=== PATIENT | male | born 1960 | race Caucasian/White ===

== ENCOUNTER → 2017-11-23 | Outpatient (CLI) | payer OTHER ==
[~2017-11-23] MED LIST: LISI-725 PO
[2017-11-23 12:28] LABS: BASO % 0.1 %; BASO ABS # 0.02 K/uL (0-0.2); EOS % 0.8 %; EOS ABS # 0.11 K/uL (0-0.5); HEMOGLOBIN 15.4 g/dL (14.0-18.0); IG# 0.04 K/uL (0.00-0.02); LYMPH % 15.9 %; LYMPH ABS # 2.21 K/uL (1.2-3.4); MEAN CELL VOLUME 92.8 fL (80-100); MEAN CORPUSCULAR HEMOGLOBIN 31.8 pg (25-34); MEAN CORPUSCULAR HGB CONC 34.2 g/dl (32-36); MEAN PLATELET VOLUME 9.4 fL (7.4-10.4); MONO % 7.6 %; MONO ABS # 1.05 K/uL (0.11-0.59); NEUT % 75.3 %; NEUT ABS # 10.44 K/uL (1.4-6.5); PLATELET COUNT 285 K/uL (130-400); RED CELL DISTRIBUTION WIDTH CV 12.4 % (11.5-14.5); RED CELL DISTRIBUTION WIDTH SD 42.5 fL (36.4-46.3); WHITE BLOOD COUNT 13.87 K/uL (4.8-10.8)
[2017-11-23 12:53] LABS: ALKALINE PHOSPHATASE 75 U/L (45-117); ALT/SGPT 54 U/L (12-78); AST/SGOT 27 U/L (15-37); BLOOD UREA NITROGEN 34 mg/dl (7-18); CALCIUM 9.4 mg/dl (8.5-10.1); CARBON DIOXIDE 25 mmol/L (21-32); CREATININE 1.36 mg/dl (0.60-1.40); GLUCOSE 112 mg/dl (70-99); POTASSIUM 4.4 mmol/L (3.5-5.1); SODIUM 135 mmol/L (136-145)
[2017-11-23 12:58] LABS: CHOLESTEROL 286 mg/dl (0-200); LDL CHOLESTEROL CALCULATED 202 mg/dl; TOTAL PROTEIN 8.1 gm/dl (6.4-8.2)
== END | disposition home or self-care (01) ==
LOC: C.LABBFT 07:38
PROVIDERS: ATTEND Physician Assistant Medical
DX: R73.01 Impaired fasting glucose (principal); N40.1 Benign prostatic hyperplasia with lower urinary tract symptoms; I10 Essential (primary) hypertension

== ENCOUNTER → 2017-11-30 | Outpatient (CLI) | payer OTHER ==
[2017-11-30 12:39] LABS: BASO % 0.3 %; BASO ABS # 0.02 K/uL (0-0.2); EOS ABS # 0.14 K/uL (0-0.5); HEMATOCRIT 42.2 % (42-52); HEMOGLOBIN 14.5 g/dL (14.0-18.0); IG# 0.01 K/uL (0.00-0.02); LYMPH % 33.3 %; LYMPH ABS # 2.32 K/uL (1.2-3.4); MEAN CELL VOLUME 92.3 fL (80-100); MEAN CORPUSCULAR HEMOGLOBIN 31.7 pg (25-34); MEAN CORPUSCULAR HGB CONC 34.4 g/dl (32-36); MONO % 7.5 %; MONO ABS # 0.52 K/uL (0.11-0.59); NEUT % 56.8 %; NEUT ABS # 3.95 K/uL (1.4-6.5); PLATELET COUNT 303 K/uL (130-400); RED CELL DISTRIBUTION WIDTH CV 12.1 % (11.5-14.5); RED CELL DISTRIBUTION WIDTH SD 40.9 fL (36.4-46.3); WHITE BLOOD COUNT 6.96 K/uL (4.8-10.8)
[2017-11-30 13:09] LABS: BLOOD UREA NITROGEN 27 mg/dl (7-18); CALCIUM 9.3 mg/dl (8.5-10.1); CARBON DIOXIDE 26 mmol/L (21-32); GLUCOSE 103 mg/dl (70-99); POTASSIUM 4.1 mmol/L (3.5-5.1); SODIUM 137 mmol/L (136-145)
== END | disposition home or self-care (01) ==
LOC: C.LABBFT 07:08
PROVIDERS: ATTEND Physician Assistant Medical
DX: Z00.00 Encounter for general adult medical examination without abnormal findings (principal); I10 Essential (primary) hypertension; R35.0 Frequency of micturition; R53.83 Other fatigue

== ENCOUNTER 2025-02-25 06:19 | Observation (INO) ==
--- NOTE | 2025-01-16 10:08 | PAT Medication Instructions ---
Medication Instructions Date of Service January 16, 2025 Home Medications Medication Instructions Recorded dutasteride 0.5 mg capsule 0.5 mg PO PM #90 caps 03/10/24 (Avodart) tadalafil 5 mg tablet (Cialis) 5 mg PO DAILY bph #30 tabs 03/17/24 amlodipine 10 mg tablet 10 mg PO DAILY #90 tabs 04/08/24 chlorthalidone 25 mg tablet 25 mg PO DAILY #90 tabs 04/16/24 metformin 500 mg tablet,extended 1,500 mg (3 x 500 mg) PO DAILY 90 04/16/24 release 24 hr days #270 tabs miconazole nitrate 2 % topical 1 applic topical BID #28 grams 04/16/24 cream hydroxyzine HCl 25 mg tablet See Rx Instructions PO .COMPLEX 11/17/24 PRN itching #240 tabs evolocumab 140 mg/mL subcutaneous 140 mg subcut .every 2 weeks #2 mL 01/01/25 pen injector (Repatha SureClick) olmesartan 40 mg tablet 40 mg PO DAILY #90 tabs 01/02/25 Medication List: dutasteride 0.5 mg capsule (Avodart) 0.5 mg PO PM tadalafil 5 mg tablet (Cialis) 5 mg PO DAILY bph amlodipine 10 mg tablet 10 mg PO DAILY chlorthalidone 25 mg tablet 25 mg PO DAILY metformin 500 mg tablet,extended release 24 hr 1,500 mg (3 x 500 mg) PO DAILY miconazole nitrate 2 % topical cream 1 applic topical BID hydroxyzine HCl 25 mg tablet See Rx Instructions PO .COMPLEX PRN itching evolocumab 140 mg/mL subcutaneous pen injector (Repatha SureClick) 140 mg subcut .every 2 weeks olmesartan 40 mg tablet 40 mg PO DAILY ezetimibe 10 mg tablet 10 mg PO HS MEDICATION INSTRUCTIONS: Continue as directed miconazole nitrate 2 % topical cream 1 applic topical BID (do not apply after bathing prior to surgery) DO NOT take the morning of surgery olmesartan 40 mg tablet 40 mg PO DAILY chlorthalidone 25 mg tablet 25 mg PO DAILY tadalafil 5 mg tablet (Cialis) 5 mg PO DAILY bph metformin 500 mg tablet,extended release 24 hr 1,500 mg (3 x 500 mg) PO DAILY Take morning of surgery With a small sip of water, OTHERWISE NOTHING TO EAT OR DRINK AFTER MIDNIGHT: amlodipine 10 mg tablet 10 mg PO DAILY Take evening before surgery ezetimibe 10 mg tablet 10 mg PO HS dutasteride 0.5 mg capsule (Avodart) 0.5 mg PO PM hydroxyzine HCl 25 mg tablet See Rx Instructions PO .COMPLEX PRN itching Other Notes ASK your prescriber for instructions: evolocumab 140 mg/mL subcutaneous pen injector (Repatha SureClick) 140 mg subcut .every 2 weeks If you have any questions please call us at [phone] or [phone] or [phone] or [phone]
--- NOTE | 2025-01-26 08:10 | Anesthesiology Consultation ---
Date of Service January 26, 2025 Assessment & Plan (1) Encounter for pre-operative examination: Plan - check BSG am DOS. - anesthesiologist request: Dr. Johnson. Request forwarded, patient aware/comfortable with any anesthesiologist if Dr. Johnson is not available that day. - cardiology office visit 01/01/25 [place]: "...Dyslipidemia/Statin Myopathy and Dyspnea on Exertion...exertional dyspnea over the past 3 years. It has not been progressive nor is it consistently reproducible. Patient admits he has had a lot of trouble with his lumbar spinal stenosis and right knee osteoarthritis which is really quite painful. He still rides his Peloton 4-5 times per week which he tolerates well without exertional dyspnea, but he is more likely to have significant knee pain and experience exertional dyspnea when he walks. Patient has not had classic angina pectoris, overt signs or symptoms of heart failure, nor has he had any symptoms suggestive of dysrhythmia. Patient is compliant with his medications...he is willing to take Repatha if he can stop Zetia. I strongly suspect that his exertional dyspnea when he walks on his painful knee but he does not have exertional dyspnea when he rides his Peloton -- he may be holding his breath when he is walking as it is painful on his right knee. However with his cardiac risk factors, would like to do further evaluation of his exertional dyspnea especially in light of his upcoming right TKA..." - Outpatient joint assessment: Patient is currently scheduled for inpatient pathway. If re-evaluated and patient/surgeon requests outpatient pathway, patient is acceptable candidate for outpatient joint program from anesthesia standpoint pending surgeon's office assessment of pt motivation/support/completion of same day joint program preop requirements. Chart Review Chart Review: Acceptable Risk for Surgery and Patient seen in Pre Admission Testing Teaching & Discussion Pre-Anesthesia Teaching/Discussion Notes: Instructed NPO after midnight before surgery, except medications with 15 cc of water. Medication instructions provided according to the PAT guidelines. History Surgery Operation Date: 02/25/25 08:50 Proposed Procedures p Right Total Knee Arthroplasty - Edwin Wade MD Height/Weight Height: 5 ft 11 in Weight: 105.7 kg Allergies Allergy/AdvReac Type Severity Reaction Status Date / Time atorvastatin AdvReac Mild erectile Verified 01/15/25 11:24 dysfxn rosuvastatin AdvReac Mild Muscle Pain Verified 01/15/25 11:24 trazodone AdvReac Mild Headache Verified 01/15/25 11:24 Medications Home Medications Medication Instructions Recorded Confirmed Last Taken dutasteride 0.5 mg capsule 0.5 mg PO PM #90 caps 03/10/24 01/15/25 Unknown (Avodart) miconazole nitrate 2 % topical 1 applic topical BID #28 grams 04/16/24 01/15/25 Unknown cream hydroxyzine HCl 25 mg tablet See Rx Instructions PO .COMPLEX 11/17/24 01/15/25 Unknown PRN itching #240 tabs ezetimibe 10 mg tablet 10 mg PO HS 01/15/25 01/15/25 Unknown amlodipine 10 mg tablet 10 mg PO QPM 01/26/25 01/26/25 Unknown chlorthalidone 25 mg tablet 25 mg PO QPM 01/26/25 01/26/25 Unknown evolocumab 140 mg/mL subcutaneous 140 mg subcut .every 2 weeks #6 mL 01/26/25 Unknown pen injector (Kurtis Davis) metformin 500 mg tablet,extended 1,500 mg PO QPM 01/26/25 01/26/25 Unknown release 24 hr olmesartan 40 mg tablet 40 mg PO QPM 01/26/25 01/26/25 Unknown tadalafil 5 mg tablet (Cialis) 5 mg PO QPM bph 01/26/25 01/26/25 Unknown Additional Notes: He states all medications are taken in the evening. He was advised he can therefore continue olmesartan, chlorthalidone, tadalafil and metformin in the evening. He verbalized understanding and denied questions/concerns/additional medication changes. Past Medical History Medical History BPH (benign prostatic hyperplasia) Depression History of anemia History of dyspnea denies current HLD (hyperlipidemia) HTN (hypertension) controlled, stable per pt Impaired fasting glucose on Metformin daily Osteoarthritis Spinal stenosis Patient denies h/o stroke, seizures, heart attack, heart failure, blood clots/DVTs or blood transfusions. Exercise / Class Metabolic Activity II 4-5 Yardwork/Stairs/Walk up hill (shortness of breath walking up one flight of stairs or a hill ongoing for several years-evaluated by [place] cardio/stress test negative-denies change or worsening; denies chest discomfort) Past Family History Family History Father Heart disease Mother Lung disease Other No family history of adverse response to anesthesia Denies family history of Ovarian cancer Prostate cancer Myocardial infarction Breast cancer Colorectal cancer Colonic polyp Past Surgical History Surgical History History of colonoscopy History of wisdom tooth extraction Hx of vasectomy S/P appendectomy S/P foot surgery right foot joint replacement S/P hernia repair s/p umbilical and ventral hernia repair 01/04/15 S/P shoulder surgery 2005- left-Dr. Hargrove Past Anesthesia History No Hx of Anesthesia Complications and No Family Hx of Anesthesia Complications History of PONV No Hx of PONV and No Hx of Motion Sickness Social History Smoking Status: Never smoker Do You Dip or Chew Tobacco: No Hx Alcohol Use: No Alcohol type: beer alcohol intake frequency: a few times a week Hx Substance Use: No substance use type: does not use Review of Systems Snoring, denies witnessed apneas. Patient denies chest pain, reflux, fever, chills, cough, wheezing, or palpitations. Physical Exam Vital Signs Vitals BP 128/70 P 62 TEMP 98.0 SP02 97% on RA RESP 18 Physical Patient resting comfortably in chair in no acute distress, alert and oriented, responding appropriately throughout visit Full cervical extension range of motion without pain TMD 3.5 finger breadths Mallampati Score 3 Dentition: several crowns; denies chipped or loose teeth, caps/crowns, implants or bridges Lungs: normal respiratory effort. Good air movement, clear throughout to auscultation, no adventitious breath sounds Cardiac: regular rate and rhythm, no murmurs noted Carotid arteries: negative bruit bilat Lab Results Anesthesia Preop Results Results Anesthesia Widget: WBC 7.82 K/ul (4.8-10.8) 01/26/25 Hgb 13.6 g/dl (14.0-18.0) L 01/26/25 Hct 39.8 % (42.0-52.0) L 01/26/25 Plt 258 K/uL (130-400) 01/26/25 Na 136 mmol/L (136-145) 01/26/25 K 4.2 mmol/L (3.5-5.1) 01/26/25 Cl 103 mmol/L (98-107) 01/26/25 CO2 27 mmol/L (21-32) 01/26/25 BUN 30 mg/dl (6-23) H 01/26/25 Creat 1.17 mg/dl (0.6-1.4) 01/26/25 Glucose Level 108 mg/dl (70-99(Fasting)) H 01/26/25 PT 10.1 Seconds (9.0-12.0) 01/26/25 PTT 25 Seconds (21-31) 01/26/25 INR 0.9 (0.9-1.1) 01/26/25 HA1c 6.4 % (4.5-5.6) H 01/26/25 Urine Color Yellow 01/26/25 Urine Appearance Clear (Clear) 01/26/25 Urine pH 5.5 (4.5-7.5) 01/26/25 Urine Specific [place] 1.022 (1.000-1.030) 01/26/25 Urine Protein Negative (Negative) 01/26/25 Urine Glucose (UA) Negative (Negative) 01/26/25 Urine Ketones Negative (Negative) 01/26/25 Urine Blood Negative (Negative) 01/26/25 Urine Nitrite Negative (Negative) 01/26/25 Urine Bilirubin Negative (Negative) 01/26/25 Urine Urobilinogen Negative (Negative) 01/26/25 Urine Leukocyte Esterase Negative (Negative) 01/26/25 Blood Type O Positive 01/26/25 Antibody Screen NEGATIVE 01/26/25 Testing Electrocardiogram Date: 04/16/24 Sinus bradycardia, rate 59 bpm Marked left axis deviation Moderate intraventricular conduction delay Minimal voltage criteria for LVH, consider normal variant Chest X-Ray Date: 01/26/25 No acute findings. Stress Test Date: 01/19/25 Negative dobutamine stress echo and ECG for ischemia MPHR 85% EF 65-70% No regional wall motion abnormalities Moderate cLVH No significant valvular abnormalities
--- NOTE | 2025-02-25 05:29 | History & Physical Bridge Note ---
Date of Service February 25, 2025 History & Physical Bridge Note I have examined the patient, reviewed the History & Physical and in the interval since the performance of the History & Physical I have noted the following changes of clinical significance: consent/ risks and site verified.no changes noted.
[2025-02-25] MEDS: LR 500ML BOLUS, THEN 15ML/HR IV SCH (06:47)
[2025-02-25] MEDS: LR 60ML/HR IV SCH (07:00)
[2025-02-25] MEDS ORDERED: BUPIVACAINE 0.5 % 5 MG/1 ML PF 10ML VIAL ONE (07:05)
[2025-02-25] MEDS ORDERED: ROPIVACAINE 0.5% 5 MG/ML 30 ML VIAL ONE (07:05)
[2025-02-25] MEDS ORDERED: MIDAZOLAM HCL 1 MG/ML 2ML VIAL ONE (08:11)
[2025-02-25] MEDS ORDERED: PROPOFOL IV EMULSION 10 MG/ML 20 ML VIAL IV ONE ×2 (08:27→10:42)
[2025-02-25] MEDS ORDERED: HYDROmorphone INJ 2 MG/ML SYR/VIAL IV PRN (08:35)
[2025-02-25] MEDS ORDERED: ePHEDrine sulfate 50 MG/ML AMP IV PRN (08:35)
[2025-02-25] MEDS ORDERED: fentaNYL citrate PF 100 MCG/2 ML VIAL IV PRN (08:35)
[2025-02-25] MEDS ORDERED: ATROPINE SULFATE 0.1 MG/ML 10ML SYR IV PRN (08:35)
[2025-02-25] MEDS ORDERED: ONDANSETRON INJ 2 MG/ML 2 ML VIAL IV PRN ×2 (08:35→13:40)
[2025-02-25] MEDS ORDERED: PROMETHAZINE HCL 6.25 MG in SODIUM CHLORIDE 0.9% 50 ML IV PRN (08:35)
[2025-02-25] MEDS: TRANEXAMIC ACID 1,000 MG **IV Pre-op IV SCH (08:53)
[2025-02-25] MEDS: ceFAZolin 2000MG 2,000 MG/15 ML SYR IV SCH ×2 (09:23→17:37)
[2025-02-25] MEDS: ORTHO JOINT ANESTHETIC ONE (09:55)
[2025-02-25] MEDS: ROPIV 0.5% 246mg, Ketorolac 30mg, EPINEPHrine 0.5mg in NSS INFIL SCH (10:45)
[2025-02-25] MEDS: TRANEXAMIC ACID 1,000 MG **IV Intra-op IV SCH (10:47)
--- NOTE | 2025-02-25 11:06 | Post Operative Brief Note ---
Immediate Post Op Note Date of Surgery February 25, 2025 Pre & Post Diagnosis Operation Date: 02/25/25 08:50 <No data on this case meets the specified criteria> Osteoarthritis right knee with flexion varus deformity pre and postop diagnosis same I identified the patient and participated in the time-out.: Yes Procedure Operation Date: 02/25/25 08:50 <No data on this case meets the specified criteria> Cemented right total knee replacement Surgeon Edwin Wade MD Lodging Manager Norma/Lesly Estimated Blood Loss 50 Findings Consistent with Post-Op Diagnosis Severe osteoarthritis tricompartmental with grade 4 medial compartment patellofemoral joint grade 2 lateral compartment marked varus flexion deformity Fluids 1200 cc of fluid Complications None
--- NOTE | 2025-02-25 11:10 | Orthopedic Progress Note ---
Date of Service February 25, 2025 Orthopedic Progress Note Patient underwent total knee replacement right cemented. Doing well denies chest pain shortness of breath fever chills nausea vomiting headache. Vital signs are stable he is afebrile. Neurovascular check limited by spinal. X-ray pending. Family contacted.
--- NOTE | 2025-02-25 11:10 | Operative Report ---
Post Operative Report Pre & Post Diagnosis Operation Date: 02/25/25 08:50 <No data on this case meets the specified criteria> Osteoarthritis right knee with flexion varus deformity preop diagnosis postop diagnosis same I identified the patient and participated in the time-out.: Yes Procedure Operation Date: 02/25/25 08:50 <No data on this case meets the specified criteria> Cemented right total knee replacement Surgeon Edwin Wade MD Calender Roll Press Operator Norma/Lesly Estimated Blood Loss 50 Findings Consistent with Post-Op Diagnosis Severe osteoarthritis of medial and patellofemoral compartments moderate lateral compartment marked varus flexion deformity Specimens Bone pathology Drains None Complications None Indications Severe pain marked x-ray deformity physical exam deformity Description of Procedure After the patient was appropriate endophyte site verified consent verified antibiotics were has been given the right lower extremity was prepped and draped use routine fashion tourniquet plated to 275 mmHg exsanguination limb with a rubber Esmarch bandage for total of 72 minutes. There was marked synovitis marked osteophytes these were all debrided and resected. The very tight extensor mechanism very tight varus deformity appropriate medial release was performed. Patella was then able to be everted and then the knee flexed. Menisci were resected. The box of the femur was then opened up with an osteotome and the seating hole made then the cruciates resected. He had enough stiffness and osteophytes that he still cannot be subluxated fully. Distal femur was then resected 11 mm proximal tibia 4 mm. Extension gap was then good at 5 or 6 mm. The box cut was then made. The tibia was then subluxated and then the tibia preparation prepared with the intramedullary drill and keel and then the size 6 fit well. Simulation on the femur required multiple revisions of the box to get the femur to sit down well and kept kicking optimal but from some medial protrusion of the nostril right which in the implant little bit anteriorly and flexion. Once this was taken care of everything was excellent. The lug holes were then made. The patella was then everted and resected leaving 14 mm a 41 button was then drilled into position and tracked well. Ortho mix was then injected about the knee trial implants were removed the knee soaked in Betadine for 3 minutes then irrigated and then the permanent cemented into position tibia femur and patella in that order after 12 minutes tourniquet deflated minor bleeding points controlled after cautery. At 14 minutes the knee was inspected after the trial spacer was removed there was no cement normal required. Wound was irrigated with Pulsavac Betadine and the permanent liner seated knee reduced and closed at 40 degrees of flexion with #2 Vicryl 2-0 Vicryl and standstill clips appropriate dressing applied patient transferred recovery in satisfactory descending tolerated seizure well. EBL was 75 cc or less crystalloid 1200 cc bone pathology pending DVT prophylaxis start tomorrow. Summary of implants ATT UNE DePuy [employer]ynthes rotating platform total knee replacement size 7 femur size 6 tibia's size 7 x 5 mm thick poly spacer 41 oval Dome patella 2 bags of [place] G cement. I attest to the content of the Intraoperative Record and any orders documented therein. Any exceptions are noted below.
--- NOTE | 2025-02-25 11:12 | Discharge Summary ---
Date of Service February 26, 2025 Admission HPI Per Admitting Provider Severe knee pain right with marked varus flexion deformity Principal Diagnosis Severe osteoarthritis right knee with flexion varus deformity Discharge Data Allergies Allergy/AdvReac Type Severity Reaction Status Date / Time atorvastatin AdvReac Mild erectile Verified 02/25/25 06:35 dysfxn rosuvastatin AdvReac Mild Muscle Pain Verified 02/25/25 06:35 trazodone AdvReac Mild Headache Verified 02/25/25 06:35 Vaccinations None Consultations None Procedures Performed Operation Date: 02/25/25 08:50 <No data on this case meets the specified criteria> Cemented right total knee replacement Ordered Studies 02/25/25 05:00 US - OR guided needle placemen Routine Hospital Course (1) Status post right knee replacement: Total Time Total Time Spent Total Time Spent (In Minutes): 5 Discharge Plan Discharge Items Reason For Visit: Right Knee Osteoarthritis Discharge Diagnosis: Osteoarthritis: right knee status post right knee replacement Follow-up/Referrals: Kendrick Blount MD [Primary Care Provider] - [facility] [Non-Staff] - Adan Attending Provider Instructions: New Medicine: * You will likely be taking one or more of these medications: 1. Percocet - Take, as directed, when you need it, every four to six hours to control your pain. 2. Iron Sulfate - Take 1x each day for the month after surgery to help you replace the blood lost during surgery. 3. Eliquis - Thins your blood to lessen the chance of forming a blood clot. * The most common side effects of pain medicine and iron are nausea and constipation. If nausea or constipation is too much of a problem or if you have any questions about your new medicines or doses, call [facility] at . We will try to help you manage these issues. "VERY IMPORTANT TO READ AND REVIEW" Blood Clots and Blood Thinning Medicine: * You are given Eliquis during the immediate post-operative period to lessen the risk of blood clots forming in your legs and/or lungs. It is usually given for 4 weeks after surgery. Pain: * The immediate post-operative period after knee replacement surgery is often quite painful. * You are given a prescription for pain medicine. You should take it, as directed, when you need it, especially before physical therapy and before going to bed. Pain that interferes with sleep is very common and can last several months. * You will likely need pain medicine for the first four to six weeks. It will not stop all of the pain. The pain will lessen and as you feel better, you may change to milder pain medicine such as Tylenol. * The most common side effects of pain medicine are nausea and constipation, so don't take more than you need. Physical Therapy: * You will have physical therapy two or three times each week for four to six weeks after your surgery in order to regain your knee range of motion and to retrain your knee to work properly. * It is just as important to make sure you are getting your knee perfectly straight as it is to regain your knee bend. * Taking a pain pill an hour before therapy can help you have a more productive and comfortable therapy session if needed. Home Exercise: * You were shown a series of exercises (heel props, heel slides, etc.) in the hospital. Do these exercises three to four times each day including the exercises you were shown in physical therapy. Walking: * Get up and walk several times each day. For the first four weeks, try not to stand or walk for more than one hour at a time. If you do stand or walk for more than one hour, you will not hurt anything, but your knee and leg will likely swell. * As you feel comfortable, you may change from the walker or crutches to a cane and then to independent walking. SELF CARE INSTRUCTIONS AFTER TOTAL KNEE REPLACEMENT A. You may need to continue a physical therapy program after discharge from the hospital. There are several options available to you. Your doctor will assist you in selecting the best one for you. 1. An out-patient facility 2 to 3 times a week for therapy or home therapy. 2. Continue working on all exercises taught to you in the hospital. Your goals should be to increase bending of your knee to 90 degrees and beyond and to fully straighten your knee. B. You may progress at your own pace from walking with a walker or crutches to a cane; then to no assistive devices. C. Make walking a part of your daily routine. Be up as much as comfortable with rest periods throughout the day. Rest with leg elevation is very important. Use the ice wrap frequently for the first 3-4 weeks. D. There are no restrictions on activities. You may ride in a car, shop, participate in subway guard and all social activities. E. Wear the long elastic stockings (CLAUDIA hose) 20 hours a day for six weeks after surgery. They can be removed several times a day for laundering and for a shower. F. Do not place a pillow behind your knee when resting. A pillow at your ankle is okay. G. You may return to previous diet. VERY IMPORTANT TO READ AND REVIEW A. Take Eliquis (blood thinning medication) as directed by your doctor. B. There are a few signs you need to watch for after you are home. Call [facility] if you notice any of the followin. Increased severe knee pain. Some pain is expected especially when you exercise. 2. Increased swelling in your leg or knee; pain or swelling of the calf muscle in either lower leg. 3. Any fluid drainage from the incision. 4. Shortness of breath or chest pain. C. Please call [facility] at if you have any concerns or questions about your operation or recovery. The doctor or his nurse will return your call promptly. D. You must take antibiotics before dental work, bladder, bowel or other surgery. Call the office to obtain a prescription at least 2 days prior to your appointment. * CALL IF INCREASED PAIN, REDNESS, DRAINAGE OR FEVER GREATER THAT 101. * Sutures should be removed 12-14 days after surgery unless you are on chronic steroids, then it will be 14-18 days after surgery. Call your doctor if: * Temperature above 101 degrees F. * Pain not relieved by pain medicine ordered. * Increased drainage or redness from incision. * Notify your doctor with any questions or concerns. MEDICATIONS: * Please take your prescriptions as instructed at your pre-op appointment and/or see medication discharge instructions listed above. * If concerns develop, call your physician's office at . SPECIAL CARE INSTRUCTIONS: * Ice/Elevate as instructed. * Keep dressing clean, dry, intact. * Your surgical extremity may be discolored due to prepping agents used on the skin. A bluish-green tint is a normal variant and should not cause alarm. Call your doctor at [phone] if: * Temperature above 101 degrees * Pain not relieved by pain medicine ordered * There is increased drainage or redness from any incision * You have any unanswered questions, problems or concerns. FOLLOW UP VISIT: * If not already scheduled, please call the office at to schedule a follow-up appointment. Stand-Alone Forms: My [facility] Medications and DC Order Prescriptions: No Action dutasteride [Avodart] 0.5 mg capsule 0.5 mg PO PM Qty: 90 3RF hydroxyzine HCl 25 mg tablet See Rx Instructions PO .COMPLEX PRN (Reason: itching) Qty: 240 1RF Rx Instructions: 1-2 orally At bedtime PRN; Repatha SureClick 140 mg/mL pen injector 140 mg subcut .every 2 weeks Qty: 6 3RF Rx Instructions: Has not started yet miconazole nitrate 2 % cream 1 applic topical BID Qty: 28 0RF ezetimibe [Zetia] 10 mg tablet 10 mg PO HS chlorthalidone 25 mg tablet 25 mg PO QPM amlodipine 10 mg tablet 10 mg PO QPM metformin 500 mg tablet extended release 24 hr 1,500 mg PO QPM olmesartan [Benicar] 40 mg tablet 40 mg PO QPM tadalafil [Cialis] 5 mg tablet 5 mg PO QPM Admission Data Admit Date/Time: 02/25/25 11:40 Attending Provider: Edwin Wade Admit Provider: Edwin Wade Primary Care Provider: Kendrick Blount Other Providers: [facility],Home [facility]
--- NOTE | 2025-02-25 11:30 | Operative Report ---
Post Operative Report Pre & Post Diagnosis Operation Date: 02/25/25 08:50 Pre-Op Diagnosis: Right Knee Degenerative Joint Disease Post-Op Diagnosis: Right Knee Degenerative Joint Disease I identified the patient and participated in the time-out.: Yes Procedure Operation Date: 02/25/25 08:50 Actual Procedures p Right Total Knee Arthroplasty(Right) - Edwin Wade MD Surgeon Edwin Wade MD Cable Respooler Norma/Lesly Estimated Blood Loss 50 Findings Consistent with Post-Op Diagnosis Specimens Right knee bone pathology Description of Procedure Patient was brought to the operative suite where he underwent anesthesia. Right lower extremity was prepped and draped in the usual sterile fashion. A surgical timeout was performed. The patient underwent a right total knee arthroplasty. Please see Dr. Wade's operative report for full details. I was present and assisted with patient positioning, limb positioning, surgical approach, soft tissue retraction, hemostasis, hardware implantation, wound closure, postoperative dressing placement. The patient was awakened and taken to the recovery room in stable condition. I attest to the content of the Intraoperative Record and any orders documented therein. Any exceptions are noted below.
--- NOTE | 2025-02-25 11:31 | Operative Report ---
Post Operative Report Pre & Post Diagnosis Operation Date: 02/25/25 08:50 Pre-Op Diagnosis: Right Knee Degenerative Joint Disease Post-Op Diagnosis: Right Knee Degenerative Joint Disease I identified the patient and participated in the time-out.: Yes Procedure Operation Date: 02/25/25 08:50 Actual Procedures p Right Total Knee Arthroplasty(Right) - Edwin Wade MD Surgeon KEVAN Wade MD Personal Care Home Administrator Norma/Lesly ROBERTS Estimated Blood Loss 50 Findings Consistent with Post-Op Diagnosis see operative report Specimens see operative report Drains none Complications none Disposition Accompanied Patient To Recovery: Yes Indications This 64-year-old male presented to the office with complaints of persisting right knee pain. He had tried conservative care measures without improvement. He elected to proceed with surgical intervention after being educated about potential risks and outcomes. Preoperative imaging was obtained. Description of Procedure The patient was administered a spinal anesthetic and then taken to the operating room where he was given sedation. He was prepped and draped in the usual sterile fashion. Please see Dr. Wade's operative report for specifics of the procedure. I was present for the entire case from initial patient positioning through final wound closure. Assistance was provided in tissue retraction, hemostasis, trial implant placement, final implant placement, and final wound closure. The patient was taken to the recovery room in satisfactory condition. I attest to the content of the Intraoperative Record and any orders documented therein. Any exceptions are noted below.
--- NOTE | 2025-02-25 11:49 | Orthopedic Progress Note ---
Date of Service February 25, 2025 Orthopedic Progress Note Seen in recovery room. He is arousable awake alert when answering questions. Denies chest pain shortness of breath fever chills nausea vomiting headache. Vital signs are stable he is afebrile. Neurovascular check femoral sciatic nerve limited by spinal starting to wear off. Postop x-rays look excellent. At this point continue with care pathway. Saline lock once he starts eating and drinking well out of bed with weightbearing as tolerated right lower extremity when spinal effects wear off. is aware.
--- NOTE | 2025-02-25 11:54 | XRay Report ---
XR knee RT 1 or 2V routine CLINICAL HISTORY: S/P R TKA COMPARISON: Right knee radiographs September 12, 2024. FINDINGS: Alignment of the total right knee arthroplasty is anatomic. There is no periprosthetic fra cture or unexpected radiopaque foreign body. There are skin juan. IMPRESSION: Expected findings following total right knee arthroplasty. ACT 112: Negative or not required by law. Electronically signed by: Antony Montelongo M.D. 02/25/2025 11:52 AM
--- OUTSIDE RECORDS SUMMARY | 2025-02-25 12:41 | External Medical Summary | Continuity of Care Document ---
Author Name Unknown Organization [facility] [address] [id number] Address [address] [place] [id number] Care Team Providers Care Photographer Helper Name Role Phone Kendrick Blount Primary Care Physician [phone] [id number] Date(s): 02/06/25 - 02/06/25 [facility] [address] [facility] [address] [facility] [address] [place] [id number] Encounter Diagnosis Right knee DJD(Discharge Diagnosis) - 02/06/25 Discharge Disposition: Home or Self Care Attending Physician: ALEJANDRA Grace, Rashawn Mc Referring Physician: MD Mauro, Edwin Marmolejo Encounter Type: Clinic Allergies, Adverse Reactions, Alerts No Known Allergies Medications lisinopril Start: 03/07/21 9:46:00 AM EDT Start Date: 03/07/21 Status: Ordered Repeat number: 1 tamsulosin 0.4 mg oral capsule take 0.8 milligram (2 CAPSULES) by mouth daily Start Date: 06/28/20 Status: Ordered Repeat number: 1 Mental Status 02/06/25 Barriers to Learning one year None evide nt Mandatory Health Literacy Documentation Yes Health Literacy Communication Barriers N ever Primary Language [place] Problem List Condition Confirmation Course Effective Dates Status Health Status Informant Right carpal tunnel syndrome Confirmed Active Right foot pain Confirmed Active Left hip pain Confirmed Active Weakness of left leg Confirmed Active Neuropathy of right peroneal nerve Confirmed Active 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 Confirmed Active Bilateral primary osteoarthritis of knee Confirmed Active Lumbar stenosis Confirmed Active Weakness of left foot Confirmed Active Diagnosis Diagnosis Type Effective Dates Health Status Cl inical Service Informant Right knee DJD Discharge Diagnosis 02/06/25 Vital Signs Most recent to oldest [Reference Range]: 1 Height 177.8 cm (02/06/25 8:18 AM) Patient Weight 104.3 kg (02/06/25 8:18 AM) Body Mass Index 32.99 kg/m2 (02/06/25 8:18 AM) Temperature [36.5-37.9 DegC] 36.6 DegC (02/06/25 8:18 AM) Respiratory Rate 20 br/min (02/06/25 8:18 AM) Blood Pressure 160/80mmHg (02/06/25 8:18 AM) Cuff Pulse Pressure 80 mmHg (02/06/25 8:18 AM) Social History Social History Type Response Smoking Status Never smoked cigaret luz Sex Male Sex Representation Male (finding) Pre-OP H & P * ALEJANDRA Grace, Rashawn D: PERFORM, MODIFY, MODIFY Event Display: Pre-OP H & P Authored Date: [id number] PRE-OPERATIVE HISTORY AND PHYSICAL Name: MARITA KRISHNAMURTHY Patient Number: [id number] : 1960 Date of Service: 02/06/2025 PRE-OP Diagnosis: Right knee DJD Planned Procedure: Right total knee arthroplasty Chief Complaint: Right knee pain History of Present Illness (including history relevant to procedure): 64-year-old male presents today with his , for his preoperative history and physical. He is scheduled to undergo a right total knee arthroplasty with Dr. Wade on 02/25/2025. The patient has had right knee pain for years. Symptoms have become worse after twisting his knee while getting off of his [employer] bike last year. Symptoms have persisted. He had tried conservative care measures, including activity modificationand OTC medications, without improvement. He is now having difficulty with ADLs. Pain is worse with weightbearing. Denies any numbness or tingling. Radiographic imaging has been obtained in August. Review Of Systems: A total of 10 systems were reviewed and are significant only for below stated conditions. Family history: Noncontributory. Social history: The patient is self-employed as a shift mechanic. . No tobacco use. Occasional EtOH use. 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 Hypertension Sleep apnea Procedure History Procedure Procedure Date Comments Great toe joint replacement 2018 Allergies and Sensitivities: NKA Current Home Meds: (Last Updated 02/06 08:16) lisinopril tamSULOsin (tamsulosin 0.4 mg oral capsule) take 0.8 milligram (2 CAPSULES) by mouth daily Vitals: Last Updated 02/06/25 08:18 Weights: Last Updated 02/06/25 08:18 Date Temp Pulse BP RR SpO2 FIO2 Date Wt(kg) Wt(lb) 02/06 08:18 36.6 160/80 20 97 02/06 08:18 104.3 229 02/06 08:18 104.3 229 24 Hr Tmax: 36.6 at 02/06 08:18 Initial Wt: 02/06 104.3 kg 229 lb Physical Exam: (relevant to the procedure, including heart and lung evaluation) General: Well-developed, well-nourished, middle-aged male, in no acute distress. Sitting in the chair. Alert and oriented. HEENT: Normocephalic, atraumatic. Eyes PERRLA, EOMI. There is pain bilaterally without nasal drainage. Oropharynx with moist oral mucosa. Good dentition. Neck: No JVD. Cardiac: RRR. No MGR. Peripheral pulses are 2+. Lungs: Clear to auscultation bilaterally. No crackles, rhonchi, or wheezing. Good air movement. Abdomen: Bowel sounds present x 4. Soft nontender. No organomegaly. No masses. Extremities: Right leg evaluation reveals an obvious varus deformity. He has a lack of approximately 5 degrees of terminal extension. Flexion to greater than 100 degrees. Strength is 5/5 with excellent quad tone. There is focal discomfort with palpation over the medial and lateral joint lines. There is also peripatellar discomfort. No palpable defect or pain with palpation over the patellar tendon or quadriceps tendon. Stable collateral ligaments. Ambulating today with a noticeable limp. Neuro: Gross sensation is intact across the right leg by soft touch. Skin: Warm dry with good turgor. No rashes. No ecchymosis. No intra-articular effusion. Studies of radiology results (relevant to the procedure): Radiographic imaging previously obtained of the right knee shows end-stage DJD with significant medial joint space collapse. Maryjane-articular osteophytes and subchondral sclerosis are also present. ASSESSMENT: Right knee DJD Plan: Approximately 35 minutes was spent with the patient and his reviewing operative procedure, postoperative recovery, physical therapy requirements, and medication use. Postoperative prescriptions for Percocet 5/325 mg and Eliquis 2.5 mg will be sent to his pharmacy upon discharge from the hospital. Anticipate discharge to home with home health services. He is also considering doing outpat ient PT. He will let us know on his decision. Informed written consent was obtained today. PDMP waschecked and there are no concerning findings. The patient is currently asymptomatic of any COVID-19or influenza symptoms. Prescription was provided for a walker. Follow-up appointment has been made with me for March 12 for staple removal. He has already seen PAT for lab work. He will have his medical clearance by his PCP next week. 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 Call with any other concerns. This dictation has been completed using [employer] text voice recognition software. Grammatical errors, omissions, insertions, and misspellings may be present due to the limitations of the software. Electronic Signature on File Electronically Reviewed/Signed by: Rashawn Grace PA-C Author Signature Dt/Tm:02/06/2025 02:11 PM Division of Sports Medicine Electronically Reviewed/Signed by: Edwin Wade MD Cosigner Signature Dt/Tm: 02/06/2025 03:23 PM Analytical Sciences Director for Clinical Affairs, [facility] Professor in Orthopaedics Certified Nurse, [facility] Sports Medicine CDS Patient Care team information Care Team Personnel Name: MD Blount Christopher E Position: Referring DIRECT Member Role: Primary Care Provider Address: [address] [place] [address] [place] Tele[employer]: [phone] Name: ARACELIS Parrish Christina L Position: Physician - Podiatry Member Role: Lifetime Relationship Address: [address] [address] [place] Telecom: [phone] Care Team Related Persons Name: NIMESH KRISHNAMURTHY Insurance Providers Guarantor name: MARITA Batista KRISHNAMURTHY [employer] Plan Information #: 1 Payer: [employer] PPO Member Number: [id number] Policy Number: NA Group Number: [id number] Health Plan Information #: 2 Payer: [employer] PP Member Number: [id number] Policy Number: NA Group Number: [id number]
[2025-02-25] MEDS ORDERED: hydrOXYzine HCl 25 MG TAB PO PRN (13:40)
[2025-02-25] MEDS ORDERED: METOCLOPRAMIDE HCL INJ 5 MG/ML 2 ML VIAL IV PRN (13:40)
[2025-02-25] MEDS ORDERED: diphenhydrAMINE 50 MG/ML VIAL IV PRN (13:40)
[2025-02-25] MEDS ORDERED: bisacodyL 10 MG SUPP PR PRN (13:40)
[2025-02-25] MEDS ORDERED: NALOXONE HCL 0.4 MG/1 ML VIAL/CARP IV PRN (13:40)
[2025-02-25] MEDS ORDERED: MAGNESIUM HYDROXIDE SUSP 30 ML UDC PO PRN (13:40)
--- NOTE | 2025-02-25 14:15 | Anesthesiology Progress Note ---
Date of Service February 25, 2025 Anesthesia Post Procedure Vital Signs Vital Signs: Temp Pulse Pulse Resp BP BP Pulse Ox 02/25/25 13:35 36.4 C L 68 18 161/81 H 96 02/25/25 13:15 64 18 159/77 H 97 02/25/25 13:00 67 16 145/86 H 98 02/25/25 12:45 63 20 159/83 H 97 02/25/25 12:30 67 20 142/76 H 95 02/25/25 12:15 36.4 C L 61 16 146/79 H 100 02/25/25 12:05 66 17 153/79 H 94 02/25/25 11:55 60 17 150/78 H 100 02/25/25 11:45 59 L 17 147/78 H 97 02/25/25 11:35 60 17 143/72 H 100 02/25/25 11:28 36.5 C 77 17 135/88 99 02/25/25 06:42 36.8 C 66 18 157/81 H 95 O2 Del Method O2 Flow Rate 02/25/25 13:35 Room Air 02/25/25 13:15 Room Air 02/25/25 13:00 Room Air 02/25/25 12:45 Room Air 02/25/25 12:30 Room Air 02/25/25 12:15 Room Air 02/25/25 12:05 Room Air 02/25/25 11:55 Room Air 02/25/25 11:45 Room Air 02/25/25 11:35 Oxymask 5 02/25/25 11:28 Oxymask 5 02/25/25 06:42 Room Air Pain Intensity Right Knee: Pain Intensity: 8 Transfer of Care Handoff Completed per policy Notes Mental Status: alert / awake / arousable and participated in evaluation Nausea / Vomiting: adequately controlled Pain: adequately controlled Airway Patency, RR, SpO2: stable & adequate BP & HR: stable & adequate Hydration State: stable & adequate Neuraxial Anesthesia: was administered and sensory block is resolving Anesthetic Complications: no major complications apparent and Pt Satisfied with anesthetic care
[2025-02-25] MEDS: ACETAMINOPHEN 500 MG TAB PO SCH (14:44)
[2025-02-25] MEDS: KETOROLAC TROMETHAMINE 15 MG/ML VIAL IV SCH (14:44)
[2025-02-25] MEDS: HYDROmorphone INJ 0.5 MG/0.5 ML SYR IV PRN (16:49)
[2025-02-25] MEDS: metFORMIN HCL ER 500 MG TABCR PO SCH (16:50)
--- NOTE | 2025-02-25 17:35 | Orthopedic Progress Note ---
Date of Service February 25, 2025 Assessment & Plan Admission and Anticipated Discharge Date Admission Date: February 25, 2025 Orthopedic Progress Note Sitting up eating and drinking well. Denies chest pain shortness of breath fever chills nausea vomiting or headache. Vital signs are stable he is afebrile. Neurovascular check femoral sciatic nerve is normal. Can do a straight leg raise can do heel slide to 60 degrees. Eating and drinking well. At this point in time saline lock IV mobilization with knee immobilizer on only needs it on when he is out of bed walking does needed on when he is in a chair or in bed. Initiate anticoagulation tomorrow. Emphasized the need to do his exercises. Asked nursing to get a sheet of the exercises for him to review.
[2025-02-25] MEDS: FERROUS GLUCONATE 324 MG TAB PO SCH (17:37)
[2025-02-25] MEDS: ASCORBIC ACID 500 MG TAB PO SCH (17:37)
[2025-02-25 19:35] VITALS: RESP 18
[2025-02-25] MEDS: oxyCODONE HCL IR 5 MG TAB (IMMEDIATE RELEASE) PO PRN (20:04)
[2025-02-25] MEDS: amLODIPine BESYLATE 5 MG TAB PO SCH (20:40)
[2025-02-25] MEDS: DOCUSATE SODIUM 100 MG CAP PO SCH (20:40)
[2025-02-25] MEDS: SENNA 8.6 MG TAB PO SCH (20:40)
[2025-02-25] MEDS: LOSARTAN POTASSIUM 50 MG TAB PO SCH (20:40)
[2025-02-25] MEDS: FINASTERIDE 5 MG TAB PO SCH (20:41)
[2025-02-25] MEDS: MICONAZOLE NITRATE 2% CR 30 GM TUBE TOP SCH (20:41)
[2025-02-25] MEDS: CHLORTHALIDONE 25 MG TAB PO SCH (20:41)
[2025-02-25] MEDS: EZETIMIBE 10 MG TAB PO SCH (20:41)
[2025-02-25 23:05] VITALS: PULSE 69
[2025-02-26 03:17] VITALS: TEMP 98.1
[2025-02-26 07:10] LABS: Hematocrit (blood only) 37.2 % (42.0-52.0); Hemoglobin 12.8 g/dl (14.0-18.0); Mean Corpuscular Hemoglobin 31.1 pg (25.0-34.0); Mean Corpuscular Hgb Conc 34.4 g/dL (32.0-36.0); Mean Corpuscular Volume 90.3 fL (80.0-100.0); Mean Platelet Volume 8.4 fL (9.4-12.4); Platelet Count 254 K/uL (130-400); RDW Coefficient of Variation 12.2 % (11.5-14.5); RDW Standard Deviation 40.1 fL (36.4-46.3); Red Blood Count 4.12 M/uL (4.70-6.10); White Blood Count 10.99 K/ul (4.8-10.8)
[2025-02-26] MEDS: dexAMETHasone 10 MG in SYRINGE 0 ML IV SCH (07:14)
[2025-02-26] MEDS: MULTIVITAMIN TAB PO SCH (07:16)
[2025-02-26] MEDS: APIXABAN 2.5 MG TAB PO SCH (07:17)
[2025-02-26 07:25] LABS: BUN Creatinine Ratio 24.8 (10-20); Calcium 8.8 mg/dl (8.6-10.3); Creatinine Clr Calc Pharmacy 86.4 ml/min; Potassium 4.2 mmol/L (3.5-5.1)
[2025-02-26 07:31] VITALS: BP 160/91; O2SAT 94
--- NOTE | 2025-02-26 08:08 | Orthopedic Progress Note ---
Date of Service February 26, 2025 Assessment & Plan Admission and Anticipated Discharge Date Admission Date: February 25, 2025 Orthopedic Progress Note Postop day 1 status post right total knee replacement. Doing well denies chest pain shortness of breath fever chills does not wear headache. Vital signs stable he is afebrile. Neurovascular check femoral/sciatic nerve is normal. Wound dressing clean dry and intact. A.m. labs look excellent. Assessment doing well discharged home today after PT OT and dressing change initiate anticoagulation today.
--- NOTE | 2025-02-26 09:16 | Orthopedic Progress Note ---
Date of Service February 26, 2025 Assessment & Plan (1) Status post right knee replacement: Plan: The patient was educated regarding today's findings. His dressings were changed today by me. CLAUDIA stocking was applied. He will keep these in place through the weekend. Dressings can be changed on Sunday as needed for soiling. Continue with ice and elevation frequently to reduce pain and swelling. Prescriptions for Eliquis and Percocet were sent to his pharmacy. Written discharge instructions were provided. Follow-up with me in the office in 2 weeks as scheduled for staple removal. Home health has been established and is scheduled to start Sunday. Continue with the knee immobilizer when out of bed today and tomorrow. It can be discontinued entirely on Sunday morning. Admission and Anticipated Discharge Date Admission Date: February 25, 2025 Subjective This 64-year-old male is seen today in his room. He is 1 day status post right total knee arthroplasty. He states he is doing okay. He was able to eat his breakfast this morning. He is having some pain. He states he did not sleep well. The oxycodone did help his discomfort overnight and he was able to get a few hours of sleep. He feels ready to be discharged to home. He denies any chest pain, shortness of breath, nausea, vomiting, or abdominal pain. His is present this morning. Review of Systems Review of Systems: Unchanged from yesterday. Physical Exam Physical Exam: General: Well-developed, well-nourished, middle-aged male, in no acute distress. Laying in bed. Alert and oriented. Skin: Warm and dry with good turgor. No rashes. Postsurgical dressing is in place on the right knee. Upon removal, he has a healing surgical incision. [place] are in place. Wound edges are well-approximated. No erythema or warmth. No drainage. There is scant dried blood on his innermost dressings. He has no active bleeding. Expected postoperative edema. No ecchymosis yet. Musculoskeletal: The patient has intact motor function of his ankle and toes. He does not have full extension at this time. Lacks about 8 to 10 degrees. He is able to perform a straight leg raise. There is active quad tone. He is able to flex to around 45 degrees. Neurologic: Gross sensation is intact across the right leg by soft touch. Peripheral pulses are 2+. Results & Data Vital Signs (Past 12 Hours) Vital Signs Temp Pulse Resp BP BP Pulse Ox O2 Del Method 02/26/25 07:30 36.7 C 69 18 160/91 H 94 Room Air 02/26/25 03:16 36.7 C 69 18 165/81 H 96 Room Air 02/25/25 23:04 36.8 C 69 18 162/84 H 95 Room Air
== END 2025-02-26 10:54 | disposition home health service (06) ==
LOC: 3W 06:19 → ASU 06:19